=== PATIENT | female | born 1970 | race Caucasian/White ===

== ENCOUNTER 2018-02-25 04:24 | Observation (INO) | payer OTHER ==
[2018-02-25 05:50] LABS: Troponin I Less than 0.010 ng/mL (< 0.028)
[2018-02-25] MEDS ORDERED: Ondansetron ODT 4 MG TAB SL PRN (06:00)
[2018-02-25] MEDS ORDERED: Ondansetron HCl/PF 4 MG/2 ML Vial IVP PRN (06:00)
[2018-02-25] MEDS ORDERED: Acetaminophen 325 MG TAB PO PRN ×2 (06:00→09:12)
[2018-02-25 06:27] VITALS: BMI 41.9
[2018-02-25] MEDS: Nitroglycerin 2% Ointment 1 INCH/1 GM Packet TOP SCH ×2 (06:45→08:08)
[2018-02-25] MEDS ORDERED: Aspirin 325 mg Enteric Coated Tablet PO SCH (09:00)
[2018-02-25] MEDS ORDERED: Bisacodyl 5 MG TAB PO PRN (09:12)
[2018-02-25] MEDS ORDERED: Acetaminophen 650 MG Suppository PR PRN (09:12)
[2018-02-25] MEDS ORDERED: Nitroglycerin 0.4 MG TAB (25 Tab Bottle) PO PRN (09:12)
[2018-02-25] MEDS ORDERED: ALPRAZolam 0.25 MG TAB PO PRN (09:15)
[2018-02-25 09:22] LABS: Troponin I Less than 0.010 ng/mL (< 0.028)
--- NOTE | 2018-02-25 09:53 | HP ---
PRIMARY CARE PROVIDER: Dr. Josh Pepe in [place], [place]. PRIMARY SIDE LASTER TACK: Dr. Adam Car, system consultant in [place], [place]. CHIEF COMPLAINT: Chest pain. HISTORY OF PRESENT ILLNESS: Ms. Pickett is a pleasant 47-year-old lady who was seen at [facility] on 02/25/2018 following transfer from emergency room at [facility]. She is visiting this area from [place]. She reports that over the last 2 days, she says she has had chest discomfort. It is from mid chest t o left side of the chest, initially dull, but sharp yesterday, radiating to left arm and jaw. It was 8/10 in terms of intensity yesterday. It was accompanied by diaphoresis, shortness of breath, and l ightheadedness. It was constant. It was also accompanied by nausea and vomiting and minimal cough. She denies any fevers or chills. She presented to the emergency room at [facility] because of ongoing chest pain. She cannot recall any aggravating or relieving factors. She reports that she had cardiac catheterization 2 years ago and there were no significant abnormalit ies at that time. She also reports that she had an abnormal stress test earlier this year, followed by a cardiac catheterization. She reports that it was normal as well. REVIEW OF SYSTEMS: All other systems reviewed and found to be negative. PAST MEDICAL HISTORY: Obstructive sleep apnea syndrome, seizures, supraventricular tachycardia, trig eminal neuralgia, restless legs syndrome, Reno's esophagus, nephrolithiasis, chronic fatigue syndr ome, diaphragmatic hernia, bladder neck obstruction, chronic sinus infections, anxiety, depression, b enign kidney tumor, gastroesophageal reflux disease, dyslipidemia, hypertension, and asthma. PAST SURGICAL HISTORY: Rotator cuff surgery, cystoscopy, lithotripsy, cardiac catheterization x2, C6 -C7 fusion, right and left carpal tunnel release, cardiac ablation, cholecystectomy, tubal ligation a nd hysterectomy. SOCIAL HISTORY: The patient denies tobacco use, alcohol use or recreational drug use. FAMILY HISTORY: Significant for coronary artery disease in several family members. ALLERGIES: CODEINE, DILAUDID, KEFLEX, MORPHINE AND WELLBUTRIN. CURRENT MEDICATIONS: Alprazolam 0.25 mg at bedtime as needed, carbamazepine 200 mg daily in the morn ing and 400 mg at bedtime, cetirizine 10 mg daily, Breo 1 puff daily, furosemide 20 mEq daily, Singul air 10 mg daily, potassium chloride 20 mEq daily, propranolol 60 mg 2 times a day, ropinirole 2 mg at bedtime, Crestor 40 mg daily, Viibryd 40 mg daily, and Ambien 12.5 mg at bedtime. PHYSICAL EXAMINATION: GENERAL: Ms. Pickett is awake and alert, not in acute distress. VITAL SIGNS: Blood pressure is 112/65, pulse 65, respiratory rate 20, and oxygen saturation 97% on 2 liters of oxygen by nasal cannula. She is afebrile. She is morbidly obese, with a BMI of 41.9. EYES: No scleral icterus. No conjunctival pallor. ENT: Moist mucosal membranes, no oropharyngeal erythema or exudates. NECK: Supple, nontender, trachea is midline. RESPIRATORY: Accessory muscles of breathing are not active. Chest wall movements are symmetric bila terally. LUNGS: Clear to auscultation without wheeze, rhonchi or crepitations. CARDIOVASCULAR: S1 and S2 are heard, regular. Peripheral pulses palpable. No carotid bruit, no per icardial rub. ABDOMEN: Soft, nontender, bowel sounds heard, no hepatomegaly, no splenomegaly. NEUROLOGIC: Cranial nerves II-XII intact, deep tendon reflexes are 2+. MUSCULOSKELETAL: Power is 5/5 in all 4 extremities. LYMPHATIC: No cervical lymphadenopathy. SKIN: No rashes or subcutaneous nodules. PSYCHIATRIC: Normal mood, normal affect, patient is oriented to person, place, and time. LABORATORY DATA: Ms. Pickett's labs and investigations were reviewed. I reviewed her electrocardiog john, which shows normal sinus rhythm, no ST changes to suggest an acute coronary syndrome. I also re viewed her chest x-ray, which does not show any pulmonary infiltrates. She has a normal white count, normal hemoglobin, normal platelet count, D-dimer less than 0.27, normal sodium, normal potassium, n ormal creatinine, normal liver profile and the lower lipase of 7. Troponin I is normal x2. ASSESSMENT AND PLAN: Ms. Pickett is a pleasant 47-year-old lady who was seen at [facility] on 02/25/2018. Her problem list includes: 1. Chest pain: She is presenting with chest pain that sounds cardiac. However, she has had a repor tedly normal cardiac catheterization earlier this year. We will continue to monitor her on telemetry and obtain records from her physician's. Differential diagnosis also includes other entities. She has a normal D-dimer. We will check blood pressure in both arms to look for any blood pressure diffe rential, although her history is not convincing for aortic dissection. 2. Hypertension: We will resume her home medications, monitor vital signs and titrate antihypertens rosario as needed. 3. Dyslipidemia: Continue statin. 4. Asthma: Appears to be stable. 5. Gastroesophageal reflux disease: Appears stable as well. We will continue all her home medications for now. LEVEL OF RISK: High. LEVEL OF COMPLEXITY: High. Many thanks for allowing me to participate in your patient's care. Please feel free to contact me wi th any questions or concerns.
[2018-02-25] MEDS ORDERED: Promethazine HCl 25 MG/ML VIAL IM/IV PRN (11:51)
[2018-02-25] MEDS ORDERED: [UNRECOGNIZED DRUG - OTHER] PO SCH (13:00)
[2018-02-25] MEDS ORDERED: Promethazine HCl 25 MG in Sodium Chloride 0.9% 50 ML IVPB PRN (13:51)
[2018-02-25] MEDS ORDERED: Lidocaine 2% Viscous Solution 10 ML, Aluminum & Magnesium Hydroxide 30 ML SSW SCH (14:30)
--- NOTE | 2018-02-25 16:02 | CON ---
DATE OF CONSULTATION: 02/25/2018 CARDIOLOGY CONSULTATION REASON FOR CONSULTATION: Chest pain. HISTORY OF PRESENT ILLNESS: Mrs. Pickett is a very pleasant 47-year-old white female who comes to [facility] for chest pain. She started having episodes of chest pain yesterday. They are stabbing i n nature. She became nauseated and started throwing up, so she decided to come in for evaluation. S he has had these symptoms before, but never this intense. So far, she has had 3 completely undetecta ble troponins and normal EKG. Cardiology is being consulted. She does follow a acute care assistant, Dr. Franco Car in [place], [place] where she is from. She is only visiting her daughter who is going t o have twins sometime early next year. Her acute care assistant follows her for history of SVT with an ablat ion in the past. She has also had episodes of chest pain for which she underwent stress testing that was abnormal with an apical defect. This was in 2014. Secondary to this, she was taken to the cath eterization lab. Records have already been obtained and they show that she had no significant hinkle ry artery disease with pretty much normal coronaries. She has continued to have chest pain since the n. PAST MEDICAL HISTORY: 1. Obstructive sleep apnea. 2. Seizure disorder. 3. History of SVT status post ablation. 4. Trigeminal neuralgia. 5. Restless legs syndrome. 6. Reno esophagus, status post Leroy fundoplication. 7. Nephrolithiasis. 8. Chronic fatigue syndrome. 9. Diaphragmatic hernia. 10. Bladder neck obstruction. 11. Chronic sinus infection. 12. Anxiety. 13. Depression. 14. Benign kidney tumor. 15. GERD. 16. Hyperlipidemia. 17. Hypertension. 18. Bronchial asthma. PAST SURGICAL HISTORY: 1. Rotator cuff repair. 2. Cystoscopy in the past with lithotripsy. 3. Cardiac catheterization in 2015, which was normal. 4. C6 and C7 fusion. 5. Right and left carpal tunnel release. 6. SVT ablation in 2014. 7. Cholecystectomy. 8. Tubal ligation. 9. Hysterectomy. 10. Per her report, a Leroy fundoplication. SOCIAL HISTORY: No alcohol, tobacco or drugs. FAMILY HISTORY: Several family members coronary artery disease; however, her dad had esophagea l cancer. OUTPATIENT MEDICATIONS: Include, 1. Alprazolam. 2. Carbamazepine. 3. Cetirizine. 4. Breo Ellipta. 5. Furosemide 20 mg a day. 6. Singulair. 7. Potassium chloride 20 mEq a day. 8. Propranolol 60 mg twice a day. 9. Ropinirole. 10. Crestor 40 mg a day. 11. Viibryd 40 mg a day. 12. Ambien. ALLERGIES: 1. CODEINE. 2. DILAUDID. 3. KEFLEX. 4. MORPHINE. 5. WELLBUTRIN. REVIEW OF SYSTEMS: A 12-point review of systems is done and it is all negative except as stated in t he history of present illness. PHYSICAL EXAMINATION: VITAL SIGNS: Temperature 97.3, pulse 65, respiratory rate 20, satting 94% on room air, blood pressur e 106/55. GENERAL: Awake, alert, oriented x3, in mild distress, nauseated. HEENT: Normocephalic, atraumatic. NECK: Supple. LUNGS: Clear. CARDIOVASCULAR: S1, S2. No S3, S4. No murmurs. ABDOMEN: Soft with bowel sounds. EXTREMITIES: No edema. SKIN: Warm and dry. LABORATORY WORK: Reviewed. Troponin has been undetectable x3, actually below assay limit. Her CBC was unremarkable. Coags, D-dimer was undetectable. Chemistry is only pertinent for chloride of 108 and a carbon dioxide of 21, otherwise normal. Normal electrolytes, normal BUN and creatinine. BNP w as 53. Lipase was 7. Albumin is 3.9. CK was 62. CK-MB was normal. IMAGING: EKG was reviewed. Chest x-ray was reviewed. ASSESSMENT AND PLAN: 1. Chest pain: At this point, I am more concerned about her nausea and her vomiting. She may be olivier ving more of an acute gastritis condition. She has been vomiting all morning. She has not had any d iarrhea. I would give her a GI cocktail and start her on a PPI. We will get an echocardiogram to rosalie abdullahi sure that her LV function is normal and if it is, there is no need for any further risk stratifica tion. 2. History of supraventricular tachycardia: No episodes of supraventricular tachycardia seen on tel emetry. She has had several episodes of chest pain during her hospital stay, so unlikely to be relat ed to this. Thank you for letting us to participate in the care of your patient. We will follow. DISPOSITION: Pending results of echocardiogram.
[2018-02-25] MEDS ORDERED: Sodium Chloride 0.9% 1,000 ML IV SCH ×2 (17:15)
[2018-02-25] MEDS ORDERED: Mag-Al Plus 1200 MG/1200 MG/120 MG/30 ML UDCUP PO PRN (18:36)
[2018-02-25] MEDS: Mometasone/Formoterol 120 PUFF INHALER INH SCH (19:16)
[2018-02-25] MEDS: Propranolol 60 MG TAB PO SCH (20:52)
[2018-02-25] MEDS ORDERED: carBAMazepine 200 MG TAB PO SCH (21:00)
[2018-02-25] MEDS ORDERED: Zolpidem Tartrate 5 MG TAB PO SCH (21:00)
[2018-02-25] MEDS ORDERED: rOPINIRole HCl 1 MG TAB PO SCH (21:00)
[2018-02-26] MEDS ORDERED: Ketorolac Tromethamine 30 MG/ML VIAL IVP PRN (00:45)
[2018-02-26 04:27] LABS: #Eosinphils 0.3 thou/uL (0.0-0.7); #Monocytes 0.6 thou/uL (0.11-0.59); #Neutrophils 3.9 thou/uL (1.40-6.50); %Basophils 0.1 % (0.0-1.0); %Lymphocytes 29.3 % (21.0-51.0); %Monocytes 8.4 % (0.0-10.0); %Neutrophils 58.3 % (42.0-75.0); Hemoglobin 12.5 g/dL (12.0-16.0); Mean Corpuscular HGB CONC 33.9 g/dL (32.0-36.0); Mean Corpuscular Hemoglobin 32.1 pg (27.0-31.0); Mean Corpuscular Volume 94.7 fL (78.0-98.0); Mean Platelet Volume 8.1 fL (7.4-10.4); Platelet Count 197 thou/uL (130-400); RBC Distribution Width 11.2 % (11.5-14.5); White Blood Cell (WBC) Count 6.7 thou/uL (4.8-10.8)
[2018-02-26 04:35] LABS: Anion Gap 13 mmol/L (10-20); BUN (Urea Nitrogen) 14 mg/dL (7.0-18.7); Calc. Creatinine Clearance 138 mL/min (70-130); Carbon Dioxide 22 mmol/L (22-29); Chloride 108 mmol/L (98-107); Estimated GFR-MDRD 81; Glucose 124 mg/dL (70-105); Potassium 3.5 mmol/L (3.5-5.1); Sodium 139 mmol/L (136-145)
[2018-02-26] MEDS: Mometasone/Formoterol 120 PUFF INHALER INH SCH (07:53)
[2018-02-26] MEDS ORDERED: carBAMazepine 200 MG TAB PO SCH (09:00)
[2018-02-26] MEDS ORDERED: Potassium Chloride 20 MEQ TAB PO SCH (09:00)
[2018-02-26] MEDS ORDERED: Montelukast Sodium 10 mg Tablet PO SCH (09:00)
[2018-02-26] MEDS ORDERED: Furosemide 20 MG TAB PO SCH (09:00)
[2018-02-26] MEDS ORDERED: Loratadine 10 MG TAB PO SCH (09:00)
[2018-02-26] MEDS ORDERED: Rosuvastatin 20 MG TAB PO SCH (09:00)
[2018-02-26] MEDS ORDERED: Aspirin 325 MG TAB PO SCH (09:00)
[2018-02-26] MEDS ORDERED: Enoxaparin Sodium 40 MG/0.4 ML SYRINGE SC SCH (09:00)
[2018-02-26] MEDS ORDERED: Vilazodone Hcl [Viibryd] 40 MG PO SCH ×2 (09:00)
[2018-02-26] MEDS: Propranolol 60 MG TAB PO SCH (11:27)
[2018-02-26 12:13] VITALS: BP 137/61; TEMP 97.9
--- NOTE | 2018-02-26 12:48 | RAD ---
FIVE VIEWS CERVICAL SPINE: History Neck pain. FINDINGS: AP, lateral, open mouth odontoid, and both oblique views cervical spine are obtained. Images demonstrate ACDF with anterior fusion of the C6-7 vertebral level. Changes of spondylosis at C5-6 are also seen. Anterior osteophyte seen. IMPRESSION: C5-6 changes of spondylosis. The neural foramen are patent. IMPRESSION: Lower cervical spine fusion and C5-6 changes of spondylosis. POS: BRIA
--- NOTE | 2018-02-26 15:06 | DIS ---
PRIMARY CARE PROVIDER: Dr. Josh Pepe in [place], [place]. DATE OF ADMISSION: 02/25/2018 DATE OF DISCHARGE: 02/26/2018 DISCHARGE DIAGNOSES: 1. Chest pain. 2. Likely GI for chest pain. CONDITION OF PATIENT ON THE DAY OF DISCHARGE: Stable. I assessed Ms. Pickett on the day of discharge. She reports her chest pain is better. She denies any nausea or vomiting. Vital signs are stable. She reports some mild numbness over both upper extremities. Vital signs are stable. S1 and S2 are heard, regular. Lungs are clear to auscultation bilaterally. CONSULTATIONS DURING THIS HOSPITALIZATION: Cardiology, Dr. Bose. HOSPITAL COURSE: Ms. Pickett is a pleasant 47-year-old lady, who was admitted to [facility] on 02/25/2018 for chest pain. Pulmonary embolism was ruled out with a negative D-dimer. Her medical records were obtained from her physician's office in [place]. Cardiology Service was consulted. The pain was felt to be noncardiac. She also had nausea and vomiting, which improved with antiemetics. She also received GI cocktail, with improvement in her symptoms. She has been started on Protonix. On the day of discharge, she reported mild numbness and tingling on both upper extremities. Neurologic examination was nonfocal. Cervical spine x-rays showed lower cervical spine fusion and C5-C6 changes of spondylosis. She is advised to follow up with her neurologist and neurosurgeon as outpatient. She is also advised to follow up with server manager as outpatient. A 2D echocardiogram showed normal left ventricular size, normal left ventricular wall thickness and left ventricular ejection fraction of 60% to 65%. Many thanks for allowing me to participate in your patient's care. Please feel free to contact me with any questions or concerns. DISCHARGE MEDICATIONS: Started on Protonix 40 mg PO daily. Otherwise, No change was made to her preadmission home medications as dictated on my history and physical note from 02/25/2018. Discharge Destination: [facility]
--- NOTE | 2018-02-26 16:01 | PDOC.CTH ---
Cardiology Progress Note - Subjective Doing earl/r Chest pain resolved with GI cocktail. Still having nausea improving with phenergan. - Objective Vital Signs Temp Pulse Resp BP Pulse Ox 02/26/18 12:04 97.9 F 71 20 137/61 97 02/26/18 07:53 78 20 98 02/26/18 07:44 98.0 F 74 20 103/53 L 98 02/26/18 04:00 98.3 F 71 16 113/56 L 95 Weight 214 lb 12.8 oz 02/25/18 02/26/18 02/27/18 06:59 06:59 06:59 Intake Total 1116 Output Total 500 Balance 616 - Physical Examination General/Neuro: alert & oriented x3, NAD Neck: no JVD present Lungs: CTA, unlabored respirations Heart: RRR Abdomen: NT/ND Extremities: other: (no edema.) - Telemetry Telemetry Rhythm: NSR - Labs Result Diagrams: 02/26/18 04:04 02/26/18 04:04 Troponin/CKMB Troponin I Less than 0.010 ng/mL (< 0.028) 02/25/18 08:33 - Assessment/Plan 1. Chest pain, likely GI 2. Hx of SVT s/p ablation 3. Normal coronaries on 2014 PLAN: - Would send home on PPI daily - Follow up with GI as she has a history of Barretts esophagus - Continue other meds.
--- NOTE | 2018-02-27 18:24 | EKG ---
Test Reason : CHEST PAIN Blood Pressure : / mmHG Vent. Rate : 068 BPM Atrial Rate : 068 BPM P-R Int : 170 ms QRS Dur : 088 ms QT Int : 428 ms P-R-T Axes : 021 023 025 degrees QTc Int : 455 ms Normal sinus rhythm Normal ECG Confirmed by CHINTAN AVILA, VITOR Osborn ([id number]), newspaper copy editor EN VALERO ([id number]) on 02/27/2018 6:24:30 PM Referred By: CHINTAN Confirmed By:VITOR WOODSON MD
--- NOTE | 2018-02-28 17:40 | EKG ---
Test Reason : Blood Pressure : / mmHG Vent. Rate : 068 BPM Atrial Rate : 068 BPM P-R Int : 174 ms QRS Dur : 084 ms QT Int : 436 ms P-R-T Axes : 032 051 040 degrees QTc Int : 463 ms Normal sinus rhythm Normal ECG When compared with ECG of 25-FEB-2018 04:36, (Unconfirmed) No significant change was found Confirmed by NISSA ESPARZA ([id number]) on 02/28/2018 5:40:29 PM Referred By: MARAH Confirmed By:NISSA ESPARZA
== END 2018-02-26 16:39 | disposition home or self-care (01) ==
LOC: ERS 04:24 → 2SW 05:29
PROVIDERS: ADMIT Internal Medicine; ATTEND Internal Medicine
DX: R07.89 Other chest pain (principal); G47.33 Obstructive sleep apnea (adult) (pediatric); R42 Dizziness and giddiness; G25.81 Restless legs syndrome; G50.0 Trigeminal neuralgia; K22.70 Barrett's esophagus without dysplasia; R53.82 Chronic fatigue, unspecified; F41.9 Anxiety disorder, unspecified; F32.9 Major depressive disorder, single episode, unspecified; J32.9 Chronic sinusitis, unspecified; K21.9 Gastro-esophageal reflux disease without esophagitis; E78.5 Hyperlipidemia, unspecified; I10 Essential (primary) hypertension; K44.9 Diaphragmatic hernia without obstruction or gangrene; I47.1 Supraventricular tachycardia; Z79.899 Other long term (current) drug therapy; Z88.5 Allergy status to narcotic agent; Z88.8 Allergy status to other drugs, medicaments and biological substances; Z98.1 Arthrodesis status; Z98.890 Other specified postprocedural states
CPT/HCPCS: 36415; 72050; 80048; 85025; 93005; 93010; 93306; 94760; 96361; 96372; 96374; 96375; 99285; A4216; G0378; J1650; J1885; J2405; J2550; J7050